=== PATIENT | female | born 1935 | race Caucasian/White ===

== ENCOUNTER 2021-07-07 07:14 | Inpatient (IN) | payer MEDICARE, OTHER ==
[2021-07-07] MEDS ORDERED: Acetaminophen 500 MG TAB ONE (08:02)
[2021-07-07 08:36] LABS: Bilirubin Neg (Negative); Blood, Urine Negative (Negative); Clarity Clear (Clear); Glucose, Urine (Dipstick) Normal (Negative); Ketone, Urine 5 mg/dL (Negative); Leukocyte Negative (Negative); Nitrite Negative (Negative); Protein, Urine (Dipstick) 15 mg/dl (Neg-Trace); Urobilinogen Normal mg/dL (Less than 2)
[2021-07-07 09:05] LABS: #Monocytes 0.5 10x3/uL (0.0-1.1); #Neutrophils 6.6 10x3/uL (1.5-8.4); %Basophils 0.4 % (0.0-2.0); %Eosinophils 0.3 % (0.0-6.0); %Lymphocytes 4.5 % (18.0-47.0); %Monocytes 6.5 % (0.0-10.0); %Neutrophils 87.6 % (40.0-75.0); Hemoglobin 11.6 g/dL (12.0-15.5); Mean Corpuscular HGB CONC 34.2 g/dL (32.0-36.0); Mean Corpuscular Volume 93.6 fl (81.6-98.3); Mean Platelet Volume 10.6 fl (7.4-10.4); Platelet Count 143 10x3/uL (150-450); Red Blood Cell (RBC) Count 3.62 10x6/uL (3.90-5.03); White Blood Cell (WBC) Count 7.6 10x3/uL (3.5-10.5)
[2021-07-07 09:14] LABS: PTT 26.6 sec (22.0-33.0); Prothrombin Time 11.3 sec (9.5-12.1)
[2021-07-07 09:17] LABS: ALT (SGPT) 32 U/L (8-55); AST (SGOT) 38 U/L (5-34); Albumin 3.7 g/dL (3.4-4.8); Alkaline Phosphatase 56 U/L (40-110); Anion Gap 16 mmol/L (10-20); BUN (Urea Nitrogen) 12 mg/dL (9.8-20.1); Bilirubin, Total 1.3 mg/dL (0.2-1.2); CK (CPK) 88 U/L (29-168); Calc. Creatinine Clearance 0 mL/min (70-130); Calcium 9.7 mg/dL (7.8-10.44); Carbon Dioxide 28 mmol/L (23-31); Chloride 88 mmol/L (98-107); Globulin 3.3 g/dL (2.4-3.5); Glucose 138 mg/dL (83-110); Lipase 43 U/L (8-78); Sodium 130 mmol/L (136-145)
[2021-07-07 09:28] LABS: Potassium 2.1 mmol/L (3.5-5.1)
[2021-07-07] MEDS ORDERED: Potassium Chloride 20 MEQ TAB ONE (10:16)
[2021-07-07] MEDS ORDERED: Potassium Chloride 20 MEQ/100 ML PREMIX BAG ONE ×2 (10:17)
[2021-07-07] MEDS ORDERED: Acetaminophen 325 MG TAB PO PRN (11:34)
[2021-07-07] MEDS ORDERED: Ondansetron PF 4 MG/2 ML Vial IVP PRN (11:34)
[2021-07-07] MEDS ORDERED: HYDROcodone/Acetaminophen 10/325 mg Tablet PO PRN (11:34)
[2021-07-07] MEDS ORDERED: Lactated Ringer's 1,000 ML IV SCH (11:45)
[2021-07-07] MEDS ORDERED: Morphine 2 MG/ML VIAL ONE (12:00)
[2021-07-07 12:03] LABS: Magnesium 1.7 mg/dL (1.6-2.6)
[2021-07-07 13:35] LABS: SARS-CoV-2 NAA Rapid Test Not Detected (NotDetected)
[2021-07-07] MEDS ORDERED: Enoxaparin Sodium 30 MG/0.3 ML SYRINGE ONE (14:27)
[2021-07-07] MEDS: Enoxaparin Sodium 30 MG/0.3 ML SYRINGE SC SCH (14:45)
[2021-07-07 16:22] LABS: Potassium 2.4 mmol/L (3.5-5.1)
[2021-07-07 18:28] LABS: Potassium 2.8 mmol/L (3.5-5.1)
[2021-07-07] MEDS: Potassium Chloride 20 MEQ in Premix Bag 1 BAG IVPB SCH ×2 (20:59→22:54)
[2021-07-07 22:49] VITALS: BMI 16.4
[2021-07-08] MEDS: Potassium Chloride 20 MEQ in Premix Bag 1 BAG IVPB SCH (01:11)
[2021-07-08 06:24] LABS: #Monocytes 0.8 10x3/uL (0.0-1.1); #Neutrophils 6.6 10x3/uL (1.5-8.4); %Basophils 0.1 % (0.0-2.0); %Lymphocytes 5.6 % (18.0-47.0); %Monocytes 10.4 % (0.0-10.0); %Neutrophils 83.3 % (40.0-75.0); Hemoglobin 8.9 g/dL (12.0-15.5); Mean Corpuscular HGB CONC 34.6 g/dL (32.0-36.0); Mean Corpuscular Hemoglobin 32.6 pg (27.0-33.0); Mean Corpuscular Volume 94.1 fl (81.6-98.3); Mean Platelet Volume 11.4 fl (7.4-10.4); Platelet Count 123 10x3/uL (150-450); RBC Distribution Width 13.7 % (11.5-14.5); Red Blood Cell (RBC) Count 2.73 10x6/uL (3.90-5.03); White Blood Cell (WBC) Count 7.9 10x3/uL (3.5-10.5)
[2021-07-08 06:55] LABS: Anion Gap 13 mmol/L (10-20); BUN (Urea Nitrogen) 12 mg/dL (9.8-20.1); Calc. Creatinine Clearance 42 mL/min (70-130); Calcium 9.6 mg/dL (7.8-10.44); Carbon Dioxide 27 mmol/L (23-31); Chloride 96 mmol/L (98-107); Glucose 106 mg/dL (83-110); Potassium 3.8 mmol/L (3.5-5.1); Sodium 132 mmol/L (136-145)
[2021-07-08] MEDS: Enoxaparin Sodium 30 MG/0.3 ML SYRINGE SC SCH ×2 (08:34→15:23)
[2021-07-08] MEDS: Lisinopril 20 MG TAB PO SCH ×2 (08:34→15:29)
[2021-07-08] MEDS ORDERED: HYDROcodone/Acetaminophen 10/325 mg Tablet PO PRN (18:11)
[2021-07-08] MEDS ORDERED: Polyethylene Glycol 3350 17 GM Packet PO PRN (18:11)
[2021-07-08] MEDS ORDERED: Lactated Ringer's 1,000 ML IV SCH (18:45)
[2021-07-09] MEDS: Lisinopril 20 MG TAB PO SCH (04:30)
[2021-07-09 04:52] LABS: #Monocytes 0.9 10x3/uL (0.0-1.1); #Neutrophils 4.6 10x3/uL (1.5-8.4); %Basophils 0.2 % (0.0-2.0); %Lymphocytes 7.6 % (18.0-47.0); %Monocytes 14.5 % (0.0-10.0); %Neutrophils 77.2 % (40.0-75.0); Hemoglobin 8.4 g/dL (12.0-15.5); Mean Corpuscular HGB CONC 33.6 g/dL (32.0-36.0); Mean Corpuscular Hemoglobin 32.3 pg (27.0-33.0); Mean Corpuscular Volume 96.2 fl (81.6-98.3); Platelet Count 105 10x3/uL (150-450); RBC Distribution Width 13.9 % (11.5-14.5)
[2021-07-09 05:03] LABS: Anion Gap 15 mmol/L (10-20); BUN (Urea Nitrogen) 10 mg/dL (9.8-20.1); Calc. Creatinine Clearance 48 mL/min (70-130); Calcium 9.7 mg/dL (7.8-10.44); Carbon Dioxide 26 mmol/L (23-31); Chloride 98 mmol/L (98-107); Glucose 101 mg/dL (83-110); Magnesium 1.7 mg/dL (1.6-2.6); Sodium 136 mmol/L (136-145)
[2021-07-09 05:15] LABS: Potassium 2.6 mmol/L (3.5-5.1)
[2021-07-09] MEDS: Potassium Chloride 20 MEQ in Premix Bag 1 BAG IVPB SCH ×2 (06:05→09:19)
[2021-07-09] MEDS ORDERED: Potassium Chloride 20 MEQ TAB PO SCH ×2 (07:45→19:00)
[2021-07-09 09:00] LABS: Phosphorus 2.3 mg/dL (2.3-4.7)
[2021-07-09] MEDS: Enoxaparin Sodium 30 MG/0.3 ML SYRINGE SC SCH (09:19)
[2021-07-09] MEDS: Potassium Chloride 20 MEQ in Lactated Ringer's 1,000 ML IV SCH (13:09)
[2021-07-09 13:22] LABS: Anion Gap 13 mmol/L (10-20); BUN (Urea Nitrogen) 14 mg/dL (9.8-20.1); Calc. Creatinine Clearance 41 mL/min (70-130); Calcium 10.1 mg/dL (7.8-10.44); Carbon Dioxide 29 mmol/L (23-31); Chloride 99 mmol/L (98-107); Glucose 155 mg/dL (83-110); Magnesium 1.7 mg/dL (1.6-2.6); Potassium 3.5 mmol/L (3.5-5.1); Sodium 137 mmol/L (136-145)
[2021-07-09] MEDS ORDERED: Magnesium 2 GM/50 ML 2 GM in Premix Bag 1 BAG IVPB SCH (16:30)
[2021-07-10] MEDS: Potassium Chloride 20 MEQ in Lactated Ringer's 1,000 ML IV SCH (03:58)
[2021-07-10 06:56] LABS: #Monocytes 0.8 10x3/uL (0.0-1.1); #Neutrophils 4.7 10x3/uL (1.5-8.4); %Basophils 0.2 % (0.0-2.0); %Eosinophils 0.3 % (0.0-6.0); %Lymphocytes 8.3 % (18.0-47.0); %Monocytes 12.6 % (0.0-10.0); %Neutrophils 78.1 % (40.0-75.0); Hemoglobin 7.9 g/dL (12.0-15.5); Mean Corpuscular HGB CONC 33.3 g/dL (32.0-36.0); Mean Corpuscular Hemoglobin 33.2 pg (27.0-33.0); Mean Corpuscular Volume 99.6 fl (81.6-98.3); Mean Platelet Volume 11.4 fl (7.4-10.4); Platelet Count 108 10x3/uL (150-450); Red Blood Cell (RBC) Count 2.38 10x6/uL (3.90-5.03)
[2021-07-10 07:15] LABS: ALT (SGPT) 25 U/L (8-55); AST (SGOT) 36 U/L (5-34); Albumin 3.1 g/dL (3.4-4.8); Alkaline Phosphatase 49 U/L (40-110); Anion Gap 13 mmol/L (10-20); BUN (Urea Nitrogen) 11 mg/dL (9.8-20.1); Bilirubin, Total 1.6 mg/dL (0.2-1.2); Calc. Creatinine Clearance 49 mL/min (70-130); Calcium 9.3 mg/dL (7.8-10.44); Carbon Dioxide 26 mmol/L (23-31); Chloride 102 mmol/L (98-107); Globulin 2.7 g/dL (2.4-3.5); Glucose 111 mg/dL (83-110); Magnesium 1.9 mg/dL (1.6-2.6); Potassium 3.7 mmol/L (3.5-5.1); Protein, Total 5.8 g/dL (5.8-8.1); Sodium 137 mmol/L (136-145)
[2021-07-10] MEDS: Lisinopril 20 MG TAB PO SCH (10:24)
[2021-07-10] MEDS: Enoxaparin Sodium 30 MG/0.3 ML SYRINGE SC SCH (10:25)
[2021-07-10 16:53] VITALS: BP 145/75; TEMP 97.8
== END 2021-07-10 16:10 | DRG 563 ==
LOC: CSHERS 07:14 → CSHERHOLD 11:55 → CSHTELE 17:50
PROVIDERS: ADMIT Internal Medicine; ATTEND Internal Medicine
DX: S42.291A Other displaced fracture of upper end of right humerus, initial encounter for closed fracture (principal); S32.591A Other specified fracture of right pubis, initial encounter for closed fracture; W19.XXXA Unspecified fall, initial encounter; Y92.018 Other place in single-family (private) house as the place of occurrence of the external cause; E87.6 Hypokalemia; Z20.822 Contact with and (suspected) exposure to COVID-19; I10 Essential (primary) hypertension; F03.90 Unspecified dementia, unspecified severity, without behavioral disturbance, psychotic disturbance, mood disturbance, and anxiety; Z88.1 Allergy status to other antibiotic agents; Z95.0 Presence of cardiac pacemaker; I48.91 Unspecified atrial fibrillation; I70.0 Atherosclerosis of aorta; Z79.899 Other long term (current) drug therapy
CPT/HCPCS: 36415; 70450; 71045; 72125; 72170; 74177; 80048; 80053; 81003; 82550; 83690; 83735; 84100; 85025; 85610; 85730; 93005; 94760; 96365; 96366; 96375; J1650; J2270; J3475; J3480; J7120; U0002